=== PATIENT | male | born 1955 | race Caucasian/White ===

== ENCOUNTER 2021-11-18 22:39 | Emergency (ER) | payer OTHER, SELFPAY ==
[2021-11-18 22:48] VITALS: BP 197/88; PULSE 76; RESP 24; TEMP 36.9; O2SAT 98; BMI 40.4
--- NOTE | 2021-11-18 23:12 | DI.RAD.S_ITS ---
PROCEDURE: XR CHEST 1V INDICATIONS: chest pain TECHNIQUE: One view of the chest was acquired. COMPARISON: None. FINDINGS: Surgical changes and devices: None. Lungs and pleura: Lungs are clear. No pleural effusions or pneumothorax. Mediastinum: Mediastinal contours appear normal. Heart size is normal. Bones and chest wall: No suspicious bony lesions. Overlying soft tissues appear unremarkable. IMPRESSION: No acute cardiopulmonary abnormalities or focal airspace disease. Dictated by: Bharat Khan M.D. on 11/19/2021 at 0:42 Approved by: Bharat Khan M.D. on 11/19/2021 at 0:42
[2021-11-18 23:15] VITALS: BP 183/86; PULSE 68; RESP 16; O2SAT 99
[2021-11-18 23:21] LABS: Add Manual Diff / Slide Review NO; Basophils Absolute Auto 100 /uL (0-100); Basophils Percent Auto 0.6 % (0-2); Eosinophils Absolute Auto 300 /uL (0-450); Eosinophils Percent Auto 2.8 % (2-4); Hematocrit 45.4 % (41-53); Hemoglobin 15.2 g/dL (13.5-17.5); Lymphocytes Absolute Auto 1700 /uL (1100-4500); Mean Corpuscular HGB Conc 33.6 % (30-36); Mean Corpuscular Hemoglobin 29.5 PG (26-34); Monocytes Absolute Auto 1000 /uL (0-900); Monocytes Percent Auto 9.9 % (3-14); Neutrophils Absolute Auto 7000 /uL (1500-7000); Neutrophils Percent Auto 69.7 % (50-75); Platelet Count 179 X10^3/uL (150-400); Red Blood Cell Count 5.16 X10^6/uL (4.5-5.9); Red Cell Distribution Width 13.4 % (11.6-14.8)
[2021-11-18 23:24] LABS: Alanine Aminotransferase 32 IU/L (<50); Albumin 4.5 g/dL (3.5-5.0); Albumin Globulin Ratio 1.4 (1.0-2.8); Alkaline Phosphatase 65 U/L (38-126); Aspartate Aminotransferase 30 IU/L (17-59); BUN Creatinine Ratio 19.6 (6-22); Bilirubin Total 0.4 mg/dL (0.2-1.3); Blood Urea Nitrogen 29 mg/dL (9-20); Calcium 9.1 mg/dL (8.4-10.2); Carbon Dioxide 23 mmol/L (22-32); Chloride 106 mmol/L (98-107); Creatine Kinase 123 U/L (55-170); Estimated Glomerular Filt Rate 52 mL/min (>60); Globulin 3.3 g/dL (1.7-4.1); Glucose 105 mg/dL (80-110); HEMOLYSIS < 15 (0-50); Lipase 304 U/L (23-300); Potassium 4.2 mmol/L (3.4-5.1); Sodium 140 mmol/L (137-145); Total Protein 7.8 g/dL (6.3-8.2)
[2021-11-18 23:36] LABS: Troponin I < 0.012 ng/mL (0.01-0.034)
[2021-11-18 23:39] LABS: CKMB % Relative Index 1.3 % (1.5-5.0); Creatine Kinase MB 1.62 ng/mL (<2.37)
--- NOTE | 2021-11-18 23:51 | ED_ITS ---
HPI - Chest Pain General Chief Complaint: Chest Pain Stated Complaint: CHEST PAIN SOB HIGH BLOOD PRESSURE Time Seen by Provider: 11/18/21 23:51 Source: patient Mode of arrival: Wheelchair Limitations: no limitations History of Present Illness HPI narrative: 66-year-old male former smoker with history of hypertension presents with his in the chief complaint of gradually worsening bandlike chest pain across hi s anterior chest that radiates into his back over the course of the day. He denies any obvious provocation or palliation. He denies associated symptoms such as dizziness, weakness or lightheadedness. He has no shortness of breath nor nausea or vomiting. He states that on occasion he feels this way when his blood pressure is elevated in as a consequence he took a 2nd round of his blood pressure medications at night. When his symptoms did not improve he presented to the emergency department. He denies any cough or hemoptysis. He denies recent travel, history of blood clot or cancer. He denies any recent exercise intolerance. Related Data Home Medications Medication Instructions Recorded Confirmed amlodipine 10 mg tablet 5 mg PO DAILY 11/19/21 11/19/21 atorvastatin 20 mg tablet 20 mg PO DAILY 11/19/21 11/19/21 azilsartan medoxomil 80 mg tablet 40 mg PO DAILY 11/19/21 11/19/21 (Edarbi) bupropion HCl 150 mg 24 hr tablet, 450 mg PO DAILY 11/19/21 11/19/21 extended release spironolactone 25 mg tablet 25 mg PO DAILY 11/19/21 11/19/21 Allergies Allergy/AdvReac Type Severity Reaction Status Date / Time No Known Drug Allergies Allergy Verified 11/18/21 23:14 Review of Systems Review of Systems Narrative: GENERAL: Denies chills, fatigue, malaise, fever, sweats. HEENT: Denies sinus pain, ear pain, sore throat, difficulty swallowing, dizziness. RESPIRATORY: Denies dyspnea, cough, wheezing, hemoptysis, sputum. CARDIOVASCULAR: See HPI GASTROINTESTINAL: Denies nausea, vomiting, abdominal pain, diarrhea, constipation, melena. : Denies dysuria, frequency, incontinence, hematuria, urinary retention. MUSCULOSKELETAL: denies weakness, joint pain, or bony pain SKIN: Denies rash, skin lesions, or other NEUROLOGIC: Denies weakness, headache, numbness, change in speech, confusion, seizures, incoordination. PSYCHIATRIC: No concerning psychosocial issues. 12 point review of systems is negative except for those stated above Patient History Social History Smoking Status: Former smoker Smoking Status: Former smoker alcohol intake frequency: holidays/special occasions only Substance Use Type: amphetamines Exam Narrative Exam Narrative: GENERAL: [66] year old patient appears stated age. Well-developed patient, in mild distress. HEAD: Atraumatic. Normocephalic. EYES: Pupils equal round and reactive. Extraocular motions intact. No scleral ic terus. No injection or drainage. ENT: Nose without bleeding, purulent drainage. Throat without erythema, tonsillar hypertrophy or exudate. Airway patent. NECK: Trachea midline. Non tender CARDIOVASCULAR: Regular rate and rhythm without murmurs, gallops, or rubs. RESPIRATORY: Clear to auscultation. Breath sounds equal bilaterally. No wheezes, rales, or rhonchi. GASTROINTESTINAL: Abdomen soft, non-tender, nondistended. EXTREMITIES: No edema or joint tenderness. BACK: Nontender without deformity or crepitance. No flank tenderness. NEURO: AOx3. SKIN: No rash or erythema of visible areas Initial Vital Signs Initial Vital Signs: Vital Signs Temperature 98.4 F 11/18/21 22:48 Pulse Rate 76 11/18/21 22:48 Respiratory Rate 24 11/18/21 22:48 Blood Pressure 197/88 H 11/18/21 22:48 Pulse Oximetry 98 11/18/21 22:48 Course Orders Ordered: ED Orders 11/18/21 22:57 Complete Blood Count AUTO DIFF Stat Comprehensive Metabolic Panel Stat Lipase Stat Magnesium Stat Troponin & CK Cardiac Panel Stat 11/18/21 23:12 XR chest 1V Stat EKG-12 Lead Stat 11/19/21 02:28 EKG-12 Lead Stat 11/19/21 02:37 D Dimer Stat Trop I [Troponin I] Stat 11/19/21 03:15 CT angio chest abdomen pelvis Stat Vital Signs Vital signs: Vital Signs - 8 hr 11/18/21 22:48 11/18/21 23:15 11/18/21 23:56 Temperature 98.4 F Pulse Rate 76 68 77 Respiratory Rate 24 16 23 Blood Pressure 197/88 H 183/86 H Pulse Oximetry 98 99 99 11/18/21 23:57 11/19/21 00:00 11/19/21 00:01 Temperature Pulse Rate 71 69 68 Respiratory Rate 23 24 22 Blood Pressure 178/84 H 180/82 H Pulse Oximetry 100 99 100 11/19/21 00:30 11/19/21 00:31 11/19/21 01:00 Temperature Pulse Rate 65 66 63 Respiratory Rate 19 22 24 Blood Pressure 173/77 H Pulse Oximetry 100 100 100 11/19/21 01:01 11/19/21 01:30 11/19/21 01:31 Temperature Pulse Rate 64 65 62 Respiratory Rate 23 24 23 Blood Pressure 179/77 H 180/89 H Pulse Oximetry 100 98 98 11/19/21 02:00 11/19/21 02:01 11/19/21 02:30 Temperature Pulse Rate 69 68 67 Respiratory Rate 17 23 23 Blood Pressure 184/81 H Pulse Oximetry 97 98 98 11/19/21 02:31 11/19/21 03:00 11/19/21 03:01 Temperature Pulse Rate 66 67 72 Respiratory Rate 24 25 H 29 H Blood Pressure 180/79 H 155/72 H Pulse Oximetry 97 98 99 11/19/21 03:29 11/19/21 03:30 11/19/21 03:31 Temperature Pulse Rate 71 69 68 Respiratory Rate 20 22 24 Blood Pressure 159/73 H 147/70 H Pulse Oximetry 98 97 97 11/19/21 03:55 11/19/21 04:00 11/19/21 04:30 Temperature Pulse Rate 76 74 77 Respiratory Rate 19 28 H 25 H Blood Pressure 166/77 H 158/70 H Pulse Oximetry 98 97 97 11/19/21 04:31 11/19/21 05:00 11/19/21 05:01 Temperature Pulse Rate 68 70 65 Respiratory Rate 21 23 24 Blood Pressure 149/69 H 153/70 H Pulse Oximetry 97 97 97 MDM - Chest Pain Lab Data Result diagrams: 11/18/21 22:57 11/18/21 22:57 Labs: Lab Results 11/18/21 11/18/21 11/19/21 Range/Units 22:57 22:57 02:37 WBC 10.0 (4.5-11.0) X10^3/uL RBC 5.16 (4.5-5.9) X10^6/uL Hgb 15.2 (13.5-17.5) g/dL Hct 45.4 (41-53) % MCV 88.0 (80-100) fL MCH 29.5 (26-34) PG MCHC 33.6 (30-36) % RDW 13.4 (11.6-14.8) % Plt Count 179 (150-400) X10^3/uL Neut % (Auto) 69.7 (50-75) % Lymph % (Auto) 17.0 L (25-40) % [place] % (Auto) 9.9 (3-14) % Eos % (Auto) 2.8 (2-4) % Baso % (Auto) 0.6 (0-2) % Neut # (Auto) 7000 (4321-7885) /uL Lymph # (Auto) 1700 (0350-7709) /uL [place] # (Auto) 1000 H (0-900) /uL Eos # (Auto) 300 (0-450) /uL Baso # (Auto) 100 (0-100) /uL D-Dimer < 200 (<230) ng/mL Sodium 140 (137-145) mmol/L Potassium 4.2 (3.4-5.1) mmol/L Chloride 106 (98-107) mmol/L Carbon Dioxide 23 (22-32) mmol/L BUN 29 H (9-20) mg/dL Creatinine 1.48 H (0.66-1.25) mg/dL Estimated GFR 52 L (>60) mL/min BUN/Creatinine Ratio 19.6 (6-22) Glucose 105 (80-110) mg/dL Calcium 9.1 (8.4-10.2) mg/dL Magnesium 2.0 (1.6-2.3) mg/dL Total Bilirubin 0.4 (0.2-1.3) mg/dL AST 30 (17-59) IU/L ALT 32 (<50) IU/L Alkaline Phosphatase 65 (38-126) U/L Total Creatine Kinase 123 (55-170) U/L CK-MB (CK-2) 1.62 (<2.37) ng/mL CK-MB (CK-2) Rel Index 1.3 L (1.5-5.0) % Troponin I < 0.012 (0.01-0.034) ng/mL Total Protein 7.8 (6.3-8.2) g/dL Albumin 4.5 (3.5-5.0) g/dL Globulin 3.3 (1.7-4.1) g/dL Albumin/Globulin Ratio 1.4 (1.0-2.8) Lipase 304 H (23-300) U/L 11/19/21 Range/Units 02:37 WBC (4.5-11.0) X10^3/uL RBC (4.5-5.9) X10^6/uL Hgb (13.5-17.5) g/dL Hct (41-53) % MCV (80-100) fL MCH (26-34) PG MCHC (30-36) % RDW (11.6-14.8) % Plt Count (150-400) X10^3/uL Neut % (Auto) (50-75) % Lymph % (Auto) (25-40) % [place] % (Auto) (3-14) % Eos % (Auto) (2-4) % Baso % (Auto) (0-2) % Neut # (Auto) (6394-7812) /uL Lymph # (Auto) (4558-0372) /uL [place] # (Auto) (0-900) /uL Eos # (Auto) (0-450) /uL Baso # (Auto) (0-100) /uL D-Dimer (<230) ng/mL Sodium (137-145) mmol/L Potassium (3.4-5.1) mmol/L Chloride (98-107) mmol/L Carbon Dioxide (22-32) mmol/L BUN (9-20) mg/dL Creatinine (0.66-1.25) mg/dL Estimated GFR (>60) mL/min BUN/Creatinine Ratio (6-22) Glucose (80-110) mg/dL Calcium (8.4-10.2) mg/dL Magnesium (1.6-2.3) mg/dL Total Bilirubin (0.2-1.3) mg/dL AST (17-59) IU/L ALT (<50) IU/L Alkaline Phosphatase (38-126) U/L Total Creatine Kinase (55-170) U/L CK-MB (CK-2) (<2.37) ng/mL CK-MB (CK-2) Rel Index (1.5-5.0) % Troponin I < 0.012 (0.01-0.034) ng/mL Total Protein (6.3-8.2) g/dL Albumin (3.5-5.0) g/dL Globulin (1.7-4.1) g/dL Albumin/Globulin Ratio (1.0-2.8) Lipase (23-300) U/L Imaging Data CT scan - chest: Radiologist's Impression: [address] [address] [address] Scan Report Signed Patient: Jose Enrique Gerber MR#: [id number] : 1955 Acct:[id number] Age/Sex: 66 / M Date of Service: 11/19/21 Loc: ED Accession Number: [id number] ?? Procedure: CT angio chest abdomen pelvis Ordering Provider: Pablito Friedman D.O. PROCEDURE:? CT ANGIO CHEST ABDOMEN PELVIS ? INDICATIONS:? chest, abdomen, back pain ? TECHNIQUE:? Precontrast 5 mm thick sections acquired from the lung apices to the iliac crests.? After the administration of intravenous contrast, 2.5 mm thick sections again acquired from the lung apices to the iliac crests.? Maximum intensity projection (MIP) oblique sagittal and coronal reformats were then acquired.? For radiation dose reduction, the following was used:? automated exposure control.? ? COMPARISON:? [facility], CR, XR CHEST 1V, 11/18/2021, 23:56. ? FINDINGS:? Image quality:? Excellent.? ? AORTA:? On precontrast imaging, no hyperdense mural hematomas can be seen. ? On postcontrast imaging, no dissection flap is seen.? The ascending aorta is within normal limits.? The proximal descending thoracic aorta measures 3.4 cm transversely. ? CHEST:? Lungs and pleura:? Within the left upper lobe anteriorly, there is a focal ovoid nodule seen, as on series 7, image 72 measuring 7 by 4 mm. ? No acute airspace opacities.? No pleural effusions or pneumothorax.? Central and peripheral airways are patent and normal in caliber.? ? Mediastinum:? Heart size is normal.? No pericardial effusion.? No mediastinal or hilar adenopathy by size criteria.? Central pulmonary arteries are normal in size.? No filling defects are seen within the pulmonary arteries to suggest pulmonary embolism.? Esophagus is normal in caliber.? No hiatal hernias.? ? Bones and chest wall:? No axillary adenopathy by size criteria.? Thyroid gland demonstrates no significant abnormality.? No suspicious bony lesions.? No vertebral body compression fractures.? ? ? ABDOMEN:? Vasculature:? Celiac trunk and mesenteric arteries are patent.? Renal arteries are also patent.? ? Solid organs:? The liver is prominent size and demonstrates mild diffuse fatty liver infiltration.? Within the anterior inferior right liver, there is a simple cyst seen, as on series 6, image 177 measuring 1.8 cm. Gallbladder wall is not thickened.? Biliary system is non dilated.? Pancreas enhances normally.? Spleen is normal in size and enhancement.? No adrenal nodules.? ? Along the posterior inferior aspect of the left kidney, there is a exophytic solid-appearing mass that measures up to 1.6 cm and measures 42 Hounsfield units.? At the superior pole of the left kidney, there is a simple cyst measuring water density and 1.4 cm. The kidneys demonstrate normal size and enhance symmetrically.? There is no hydronephrosis. ? Peritoneum and bowel:? No free fluid or air.? Bowel loops are normal in caliber and wall thickness.? ? Nodes and vessels:? No retroperitoneal or mesenteric adenopathy by size criteria.? Inferior vena cava is normal in morphology.? ? Miscellaneous:? No ventral hernias.? ? ? PELVIS:? Genitourinary:? Bladder wall thickness is normal.? ? Miscellaneous:? No inguinal adenopathy.? Bilateral fat containing inguinal hernias are seen.? No ventral hernias.? ? Bones:? No suspicious bony lesions.? No vertebral body compression fractures.? Focal degenerative change is seen at L4-L5 and L5-S1.? Mild levoconvex scoliotic curvature is noted.? ? ? IMPRESSION:? 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 ? No acute findings of the aorta can be seen.? No dissection. ? There is a 7 mm left upper lobe pulmonary nodule.? ? 1.6 cm solid mass along the posterior aspect of the left kidney inferiorly, which is highly suspicious for renal cell carcinoma. ? ? ? Incidental note is made of: Enlarged, fatty liver. Simple liver cyst Simple appearing left renal cyst Mild levoconvex scoliotic curvature is noted. Focal lower lumbar spine degenerative change? Bilateral fat containing inguinal hernias ? ? Note: This case (including differences between this final report and the preliminary report) discussed by telephone with Dr. York at 8:22 a.m. [place] time on 11/19/2021. ? ? ? Dictated by: Chas Chance M.D. on 11/19/2021 at 8:09 ? ? Approved by: Chas Chance M.D. on 11/19/2021 at 8:27 ? MDM Narrative Medical decision making narrative: Patient with reassuring history and physical exam, labs are unremarkable, he has been observed for many hours and has nonischemic changes on the EKG and multiple troponins are negative. Multiple causes of chest pain considered including VT, PE, pneumothorax, pneumonia, aortic dissection, and pleurisy. Patient reports no radiation, no diaphoresis, no provocation with exertion, and no vomiting. Dissection and pulmonary embolism considered but thought less likely given lack of findings on imaging. There is a slight dilation of his thoracic aorta at 3.4 cm, however this is discussed with vascular surgery ([place] [facility]) and thought to be highly unlikely that this is related. She recommends yearly imaging to track. [facility] Radiology notes a lung nodule and mass in kidney which was not noted on preliminary read. This was relayed to day time physician and then to patient. Discharge Plan Departure Patient Disposition: Home Clinical Impression: Atypical chest pain, HTN (hypertension) Instructions: DI for Atypical Chest Pain Activity Restrictions/Additional Instructions: *You have been diagnosed with [hypertension and atypical chest pain]. Your labs are very reassuring and blood pressure has improved. CT of the chest did note a small dilitation of your descending thoracic aorta (3.5cm), but this is very unlikely to be related to your symptoms today. I've spoken with vascular surgery about this and they agree this should be followed on an annual basis, but is unlikely to be related to your visi. *What to do: *Please continue to take your regular medications as directed. [ ] New medication prescriptions sent to your pharmacy: [ ] [ ] New medication written as a paper prescription [x ] No new medications given *Please follow up with your primary care provider in 2-3 days, call for an appointment. Let them know you were seen in the Emergency Department and that we ask that you be seen in follow up. We will electronically transmit a record of today's note if your PCP is in our system *If you do not have a primary care provider please contact the [facility] Resource line at [phone]. They will ask some questions about your medical history and help get you set up with a doctor in the community. *Return to Emergency Department if you should have any new, worsening or concerning symptoms, such as [fever greater than 101 F, shaking chills, worsening pain, persistent vomiting or other bothersome symptoms] Prescriptions: No Action amlodipine 10 mg tablet 5 mg PO DAILY 0RF Label Comments: TAKE 1/2 TABLET BY MOUTH EVERY DAY Edarbi 80 mg tablet 40 mg PO DAILY 0RF spironolactone 25 mg tablet 25 mg PO DAILY 0RF Label Comments: TAKE 1 TABLET BY MOUTH TWICE DAILY atorvastatin 20 mg tablet 20 mg PO DAILY 0RF Label Comments: TAKE 1 TABLET BY MOUTH EVERY DAY bupropion HCl 150 mg tablet extended release 24 hr 450 mg PO DAILY 0RF Label Comments: TAKE 3 TABLETS BY MOUTH EVERY DAY
[2021-11-18 23:56] VITALS: PULSE 77; RESP 23; O2SAT 99
[2021-11-18 23:57] VITALS: BP 178/84; PULSE 71; RESP 23; O2SAT 100
[2021-11-19] VITALS (23 sets, daily range): BP systolic 147–184; BP diastolic 69–89; PULSE 62–77; RESP 17–29; O2SAT 97–100
[2021-11-19 03:04] LABS: D Dimer < 200 ng/mL (<230)
[2021-11-19 03:07] LABS: Troponin I < 0.012 ng/mL (0.01-0.034)
--- NOTE | 2021-11-19 03:15 | DI.CT.S_ITS ---
PROCEDURE: CT ANGIO CHEST ABDOMEN PELVIS INDICATIONS: chest, abdomen, back pain TECHNIQUE: Precontrast 5 mm thick sections acquired from the lung apices to the iliac crests. After the administration of intravenous contrast, 2.5 mm thick sections again acquired from the lung apices to the iliac crests. Maximum intensity projection (MIP) oblique sagittal and coronal reformats were then acquired. For radiation dose reduction, the following was used: automated exposure control. COMPARISON: [facility], CR, XR CHEST 1V, 11/18/2021, 23:56. FINDINGS: Image quality: Excellent. AORTA: On precontrast imaging, no hyperdense mural hematomas can be seen. On postcontrast imaging, no dissection flap is seen. The ascending aorta is within normal limits. The proximal descending thoracic aorta measures 3.4 cm transversely. CHEST: Lungs and pleura: Within the left upper lobe anteriorly, there is a focal ovoid nodule seen, as on series 7, image 72 measuring 7 by 4 mm. No acute airspace opacities. No pleural effusions or pneumothorax. Central and peripheral airways are patent and normal in caliber. Mediastinum: Heart size is normal. No pericardial effusion. No mediastinal or hilar adenopathy by size criteria. Central pulmonary arteries are normal in size. No filling defects are seen within the pulmonary arteries to suggest pulmonary embolism. Esophagus is normal in caliber. No hiatal hernias. Bones and chest wall: No axillary adenopathy by size criteria. Thyroid gland demonstrates no significant abnormality. No suspicious bony lesions. No vertebral body compression fractures. ABDOMEN: Vasculature: Celiac trunk and mesenteric arteries are patent. Renal arteries are also patent. Solid organs: The liver is prominent size and demonstrates mild diffuse fatty liver infiltration. Within the anterior inferior right liver, there is a simple cyst seen, as on series 6, image 177 measuring 1.8 cm. Gallbladder wall is not thickened. Biliary system is non dilated. Pancreas enhances normally. Spleen is normal in size and enhancement. No adrenal nodules. Along the posterior inferior aspect of the left kidney, there is a exophytic solid-appearing mass that measures up to 1.6 cm and measures 42 Hounsfield units. At the superior pole of the left kidney, there is a simple cyst measuring water density and 1.4 cm. The kidneys demonstrate normal size and enhance symmetrically. There is no hydronephrosis. Peritoneum and bowel: No free fluid or air. Bowel loops are normal in caliber and wall thickness. Nodes and vessels: No retroperitoneal or mesenteric adenopathy by size criteria. Inferior vena cava is normal in morphology. Miscellaneous: No ventral hernias. PELVIS: Genitourinary: Bladder wall thickness is normal. Miscellaneous: No inguinal adenopathy. Bilateral fat containing inguinal hernias are seen. No ventral hernias. Bones: No suspicious bony lesions. No vertebral body compression fractures. Focal degenerative change is seen at L4-L5 and L5-S1. Mild levoconvex scoliotic curvature is noted. IMPRESSION: Mild aneurysm of the proximal descending thoracic aorta measuring 3.4 cm. No acute findings of the aorta can be seen. No dissection. There is a 7 mm left upper lobe pulmonary nodule. 1.6 cm solid mass along the posterior aspect of the left kidney inferiorly, which is highly suspicious for renal cell carcinoma. Incidental note is made of: Enlarged, fatty liver. Simple liver cyst Simple appearing left renal cyst Mild levoconvex scoliotic curvature is noted. Focal lower lumbar spine degenerative change Bilateral fat containing inguinal hernias Note: This case (including differences between this final report and the preliminary report) discussed by telephone with Dr. York at 8:22 a.m. [place] time on 11/19/2021. Dictated by: Chas Chance M.D. on 11/19/2021 at 8:09 Approved by: Chas Chance M.D. on 11/19/2021 at 8:27
== END 2021-11-19 06:58 | disposition home or self-care (01) ==
PROVIDERS: Emergency Provider Emergency Medicine
DX: R07.89 Other chest pain (principal); I10 Essential (primary) hypertension; R91.1 Solitary pulmonary nodule; N28.89 Other specified disorders of kidney and ureter; Z79.899 Other long term (current) drug therapy; Z87.891 Personal history of nicotine dependence
CPT/HCPCS: 36415; 71045; 71275; 74174; 80053; 82550; 82553; 83690; 83735; 84484; 85025; 85379; 93005; 99284; Q9967